=== PATIENT | male | born 1985 | race Caucasian/White ===

== ENCOUNTER 2022-03-13 16:30 | Inpatient (IN) | payer OTHER ==
[2022-03-13 18:55] VITALS: BMI 19.2
[2022-03-13] MEDS ORDERED: MELATONIN 5 MG TABLETS PO SCH (22:00)
[2022-03-13] MEDS ORDERED: ACETAMINOPHEN 325 MG TABLET (FP) PO PRN (22:06)
[2022-03-13] MEDS ORDERED: LOPERAMIDE HCL 2 MG CAPSULE PO PRN (22:06)
[2022-03-13] MEDS ORDERED: MAG HYDROX/AL HYDROX/SIMETH 30 ML UNIT-DOSE CUP PO PRN (22:06)
[2022-03-13] MEDS ORDERED: MAGNESIUM CITRATE 300 ML BOTTLE PO PRN (22:06)
[2022-03-13] MEDS ORDERED: guaiFENesin 200 MG/10 ML 10 ML UNIT-DOSE CUPS PO PRN (22:06)
[2022-03-13] MEDS ORDERED: MAGNESIUM HYDROX 2400MG/30ML ORAL SUSPENSION 30 ML CUP PO PRN (22:06)
[2022-03-13] MEDS ORDERED: NICOTINE POLACRILEX 2 MG GUM BC PRN (22:06)
[2022-03-13] MEDS ORDERED: P-EPHED 60MG/TRIPROLIDI 2.5MG TABLET PO PRN (22:06)
[2022-03-14] MEDS ORDERED: TUBERCULIN PPD 5 TU/0.1ML VIAL ID ONE (06:22)
[2022-03-14] MEDS: PRENATAL VITAMINS W/ FOLIC ACID TABLET (FP) PO SCH (09:30)
[2022-03-14] MEDS: NICOTINE 21 MG/24 HOURS TOPICAL PATCH TD SCH (09:30)
[2022-03-14 09:37] LABS: HEMATOCRIT 38.7 % (35.4-49); MCH 31.4 pg (25.7-33.7); MCHC 33.6 g/dl (32.0-35.9); MEAN CELL VOLUME 93.4 fl (80-96); MEAN PLT VOLUME 7.9 fl (7.5-11.1); PLATELET COUNT 273 10^3/uL (134-434); RBC 4.14 M/mm3 (4.00-5.60); RDW 14.4 % (11.9-15.9); WHITE BLOOD COUNT 7.9 K/mm3 (4.0-10.0)
[2022-03-14 10:02] LABS: ALBUMIN 3.8 g/dl (3.4-5.0); CALCIUM 8.8 mg/dL (8.5-10.1)
[2022-03-14 10:04] LABS: BLOOD UREA NITROGEN 17.4 mg/dL (7-18)
[2022-03-14 10:06] LABS: CREATININE 0.7 mg/dL (0.55-1.3)
[2022-03-14 10:07] LABS: BILIRUBIN,TOTAL 0.5 mg/dL (0.2-1); TOT PROT 7.4 g/dl (6.4-8.2)
[2022-03-14 10:41] LABS: SYPHILIS W/ RPR CONF NON-REACTIVE (NONREACTIVE)
[2022-03-14] MEDS: hydrOXYzine PAMOATE 25 MG CAPSULE (FP) PO PRN ×3 (13:15→22:18)
[2022-03-14] MEDS: THIAMINE HCL 100 MG TABLET (FP) PO SCH (21:03)
[2022-03-14] MEDS: SUVOREXANT 10 MG TABLET PO PRN (21:04)
[2022-03-15] MEDS: NICOTINE 21 MG/24 HOURS TOPICAL PATCH TD SCH (09:48)
[2022-03-15] MEDS: PRENATAL VITAMINS W/ FOLIC ACID TABLET (FP) PO SCH (09:48)
[2022-03-15] MEDS: hydrOXYzine PAMOATE 25 MG CAPSULE (FP) PO PRN ×2 (09:50→18:31)
[2022-03-15] MEDS: IBUPROFEN 400 MG TABLET (FP) PO PRN ×2 (09:50→18:31)
[2022-03-15 13:18] LABS: URINE APPEARANCE CLEAR; URINE BILIRUBIN NEGATIVE (NEGATIVE); URINE COLOR YELLOW; URINE GLUCOSE (UA) NEGATIVE (NEGATIVE); URINE KETONE NEGATIVE (NEGATIVE); URINE LEUK ESTERASE NEGATIVE (NEGATIVE); URINE NITRITE NEGATIVE (NEGATIVE); URINE PROTEIN NEGATIVE (NEGATIVE); URINE UROBILINOGEN 0.2 mg/dL (0.2-1.0)
[2022-03-15] MEDS: THIAMINE HCL 100 MG TABLET (FP) PO SCH (21:20)
[2022-03-15] MEDS: SUVOREXANT 10 MG TABLET PO PRN (21:21)
[2022-03-16] MEDS: PRENATAL VITAMINS W/ FOLIC ACID TABLET (FP) PO SCH (09:31)
[2022-03-16] MEDS: hydrOXYzine PAMOATE 25 MG CAPSULE (FP) PO PRN ×2 (09:31→14:38)
[2022-03-16] MEDS: NICOTINE 21 MG/24 HOURS TOPICAL PATCH TD SCH (09:32)
[2022-03-16] MEDS: METHOCARBAMOL 500 MG TABLET PO PRN (14:25)
[2022-03-16] MEDS: THIAMINE HCL 100 MG TABLET (FP) PO SCH (21:30)
[2022-03-16] MEDS: SUVOREXANT 10 MG TABLET PO PRN (21:31)
[2022-03-17] MEDS: NICOTINE 21 MG/24 HOURS TOPICAL PATCH TD SCH (10:07)
[2022-03-17] MEDS: PRENATAL VITAMINS W/ FOLIC ACID TABLET (FP) PO SCH (10:07)
[2022-03-17] MEDS: METHOCARBAMOL 500 MG TABLET PO PRN ×2 (10:07→18:06)
[2022-03-17] MEDS: hydrOXYzine PAMOATE 25 MG CAPSULE (FP) PO PRN (10:07)
[2022-03-17] MEDS ORDERED: NICOTINE 7 MG/24 HOURS TOPICAL PATCH TD PRN (14:33)
[2022-03-17] MEDS: LIDOCAINE 5% TOPICAL PATCH TP SCH (15:14)
[2022-03-17] MEDS: NICOTINE 10 MG CARTRIDGE (INHALER) IH PRN (15:16)
[2022-03-17] MEDS: THIAMINE HCL 100 MG TABLET (FP) PO SCH (21:21)
[2022-03-17] MEDS: LIDOCAINE PATCH REMOVAL MC SCH (21:22)
[2022-03-17] MEDS: SUVOREXANT 10 MG TABLET PO PRN (21:22)
[2022-03-18] MEDS: hydrOXYzine PAMOATE 25 MG CAPSULE (FP) PO PRN ×3 (06:17→21:07)
[2022-03-18] MEDS: METHOCARBAMOL 500 MG TABLET PO PRN (06:17)
[2022-03-18] MEDS: PRENATAL VITAMINS W/ FOLIC ACID TABLET (FP) PO SCH (09:51)
[2022-03-18] MEDS: LIDOCAINE 5% TOPICAL PATCH TP SCH (09:51)
[2022-03-18] MEDS ORDERED: ACETAMINOPHEN 325 MG TABLET (FP) PO PRN (10:06)
[2022-03-18] MEDS: BACLOFEN 10 MG TABLET (FP) PO SCH ×2 (14:04→21:06)
[2022-03-18] MEDS: THIAMINE HCL 100 MG TABLET (FP) PO SCH (21:06)
[2022-03-18] MEDS: LIDOCAINE PATCH REMOVAL MC SCH (21:07)
[2022-03-18] MEDS: SUVOREXANT 10 MG TABLET PO PRN (21:07)
[2022-03-19] MEDS: BACLOFEN 10 MG TABLET (FP) PO SCH ×3 (06:20→21:13)
[2022-03-19] MEDS: hydrOXYzine PAMOATE 25 MG CAPSULE (FP) PO PRN ×2 (06:20→14:03)
[2022-03-19] MEDS: LIDOCAINE 5% TOPICAL PATCH TP SCH (09:41)
[2022-03-19] MEDS: PRENATAL VITAMINS W/ FOLIC ACID TABLET (FP) PO SCH (09:42)
[2022-03-19] MEDS: NICOTINE 10 MG CARTRIDGE (INHALER) IH PRN ×3 (10:01→21:13)
[2022-03-19] MEDS: THIAMINE HCL 100 MG TABLET (FP) PO SCH (21:13)
[2022-03-19] MEDS: SUVOREXANT 10 MG TABLET PO PRN (21:13)
[2022-03-19] MEDS: LIDOCAINE PATCH REMOVAL MC SCH (21:18)
[2022-03-20] MEDS: hydrOXYzine PAMOATE 25 MG CAPSULE (FP) PO PRN ×3 (06:03→21:10)
[2022-03-20] MEDS: BACLOFEN 10 MG TABLET (FP) PO SCH (06:03)
[2022-03-20] MEDS: NICOTINE 10 MG CARTRIDGE (INHALER) IH PRN (09:55)
[2022-03-20] MEDS: PRENATAL VITAMINS W/ FOLIC ACID TABLET (FP) PO SCH (09:55)
[2022-03-20] MEDS: LIDOCAINE 5% TOPICAL PATCH TP SCH (09:55)
[2022-03-20] MEDS: METHOCARBAMOL 500 MG TABLET PO PRN ×2 (15:42→21:10)
[2022-03-20] MEDS: THIAMINE HCL 100 MG TABLET (FP) PO SCH (21:10)
[2022-03-20] MEDS: SUVOREXANT 10 MG TABLET PO PRN (21:10)
[2022-03-20] MEDS: LIDOCAINE PATCH REMOVAL MC SCH (22:34)
[2022-03-21] MEDS: NICOTINE 10 MG CARTRIDGE (INHALER) IH PRN ×2 (06:27→21:09)
[2022-03-21] MEDS: PRENATAL VITAMINS W/ FOLIC ACID TABLET (FP) PO SCH (09:36)
[2022-03-21] MEDS: LIDOCAINE 5% TOPICAL PATCH TP SCH (09:36)
[2022-03-21] MEDS: hydrOXYzine PAMOATE 25 MG CAPSULE (FP) PO PRN ×2 (09:37→21:08)
[2022-03-21] MEDS: METHOCARBAMOL 500 MG TABLET PO PRN ×2 (09:37→21:07)
[2022-03-21] MEDS: THIAMINE HCL 100 MG TABLET (FP) PO SCH (21:07)
[2022-03-21] MEDS: LIDOCAINE PATCH REMOVAL MC SCH (21:32)
[2022-03-21] MEDS ORDERED: SUVOREXANT 10 MG TABLET PO PRN (21:35)
[2022-03-22] MEDS: NICOTINE 10 MG CARTRIDGE (INHALER) IH PRN ×2 (10:20→15:28)
[2022-03-22] MEDS: PRENATAL VITAMINS W/ FOLIC ACID TABLET (FP) PO SCH (10:20)
[2022-03-22] MEDS: hydrOXYzine PAMOATE 25 MG CAPSULE (FP) PO PRN ×2 (10:20→15:28)
[2022-03-22] MEDS: METHOCARBAMOL 500 MG TABLET PO PRN (10:20)
[2022-03-22] MEDS: LIDOCAINE 5% TOPICAL PATCH TP SCH (10:21)
[2022-03-22] MEDS ORDERED: SUVOREXANT 10 MG TABLET PO PRN (22:00)
[2022-03-22] MEDS ORDERED: SUVOREXANT 10 MG TABLET PO ONE (22:38)
[2022-03-22] MEDS: THIAMINE HCL 100 MG TABLET (FP) PO SCH (22:45)
[2022-03-22] MEDS: SUVOREXANT 10 MG TABLET PO PRN (22:45)
[2022-03-22] MEDS: LIDOCAINE PATCH REMOVAL MC SCH (22:49)
[2022-03-23] MEDS: NICOTINE 10 MG CARTRIDGE (INHALER) IH PRN ×3 (06:20→21:18)
[2022-03-23] MEDS: hydrOXYzine PAMOATE 25 MG CAPSULE (FP) PO PRN ×4 (06:20→21:17)
[2022-03-23] MEDS: METHOCARBAMOL 500 MG TABLET PO PRN ×2 (06:20→21:17)
[2022-03-23] MEDS: PRENATAL VITAMINS W/ FOLIC ACID TABLET (FP) PO SCH (09:41)
[2022-03-23] MEDS: LIDOCAINE 5% TOPICAL PATCH TP SCH (09:42)
[2022-03-23] MEDS: IBUPROFEN 400 MG TABLET (FP) PO PRN (14:57)
[2022-03-23] MEDS: THIAMINE HCL 100 MG TABLET (FP) PO SCH (21:17)
[2022-03-23] MEDS: SUVOREXANT 10 MG TABLET PO PRN (21:17)
[2022-03-23] MEDS: LIDOCAINE PATCH REMOVAL MC SCH (21:29)
[2022-03-23] MEDS ORDERED: SUVOREXANT 10 MG TABLET PO PRN (22:00)
[2022-03-24] MEDS: hydrOXYzine PAMOATE 25 MG CAPSULE (FP) PO PRN ×3 (06:20→21:22)
[2022-03-24] MEDS: METHOCARBAMOL 500 MG TABLET PO PRN ×3 (06:20→21:22)
[2022-03-24] MEDS: NICOTINE 10 MG CARTRIDGE (INHALER) IH PRN ×3 (06:21→21:22)
[2022-03-24] MEDS: PRENATAL VITAMINS W/ FOLIC ACID TABLET (FP) PO SCH (10:07)
[2022-03-24] MEDS: LIDOCAINE 5% TOPICAL PATCH TP SCH (10:07)
[2022-03-24] MEDS: THIAMINE HCL 100 MG TABLET (FP) PO SCH (21:21)
[2022-03-24] MEDS: LIDOCAINE PATCH REMOVAL MC SCH (21:22)
[2022-03-24] MEDS ORDERED: SUVOREXANT 10 MG TABLET PO PRN (22:00)
[2022-03-25] MEDS: METHOCARBAMOL 500 MG TABLET PO PRN ×2 (06:23→14:18)
[2022-03-25] MEDS: hydrOXYzine PAMOATE 25 MG CAPSULE (FP) PO PRN ×2 (06:23→09:48)
[2022-03-25] MEDS: NICOTINE 10 MG CARTRIDGE (INHALER) IH PRN ×2 (06:24→14:18)
[2022-03-25] MEDS: LIDOCAINE 5% TOPICAL PATCH TP SCH (09:49)
[2022-03-25] MEDS: PRENATAL VITAMINS W/ FOLIC ACID TABLET (FP) PO SCH (09:49)
[2022-03-25] MEDS: hydrOXYzine PAMOATE 50 MG CAPSULE (FP) PO PRN ×2 (14:18→21:00)
[2022-03-25] MEDS: SUVOREXANT 15 MG TABLET PO PRN (21:01)
[2022-03-25] MEDS: IBUPROFEN 400 MG TABLET (FP) PO PRN (21:01)
[2022-03-25] MEDS: THIAMINE HCL 100 MG TABLET (FP) PO SCH (21:01)
[2022-03-25] MEDS: LIDOCAINE PATCH REMOVAL MC SCH (21:02)
[2022-03-25] MEDS ORDERED: SUVOREXANT 10 MG TABLET PO PRN (22:00)
[2022-03-26] MEDS: NICOTINE 10 MG CARTRIDGE (INHALER) IH PRN ×3 (06:35→21:18)
[2022-03-26] MEDS: hydrOXYzine PAMOATE 50 MG CAPSULE (FP) PO PRN ×2 (06:35→13:04)
[2022-03-26] MEDS: METHOCARBAMOL 500 MG TABLET PO PRN ×2 (06:35→13:04)
[2022-03-26] MEDS: PRENATAL VITAMINS W/ FOLIC ACID TABLET (FP) PO SCH (09:44)
[2022-03-26] MEDS: LIDOCAINE 5% TOPICAL PATCH TP SCH (09:45)
[2022-03-26] MEDS: LIDOCAINE PATCH REMOVAL MC SCH (21:16)
[2022-03-26] MEDS: THIAMINE HCL 100 MG TABLET (FP) PO SCH (21:16)
[2022-03-26] MEDS: SUVOREXANT 15 MG TABLET PO PRN (21:17)
[2022-03-26] MEDS: IBUPROFEN 400 MG TABLET (FP) PO PRN (21:18)
[2022-03-27] MEDS: hydrOXYzine PAMOATE 50 MG CAPSULE (FP) PO PRN ×3 (06:09→21:15)
[2022-03-27] MEDS: METHOCARBAMOL 500 MG TABLET PO PRN ×2 (06:09→19:14)
[2022-03-27] MEDS: NICOTINE 10 MG CARTRIDGE (INHALER) IH PRN ×3 (06:10→19:14)
[2022-03-27] MEDS: PRENATAL VITAMINS W/ FOLIC ACID TABLET (FP) PO SCH (09:51)
[2022-03-27] MEDS: IBUPROFEN 400 MG TABLET (FP) PO PRN (09:52)
[2022-03-27] MEDS: LIDOCAINE 5% TOPICAL PATCH TP SCH (12:26)
[2022-03-27] MEDS: busPIRone HCL 10 MG TABLET (FP) PO SCH ×2 (14:40→21:15)
[2022-03-27] MEDS: THIAMINE HCL 100 MG TABLET (FP) PO SCH (21:15)
[2022-03-27] MEDS: LIDOCAINE PATCH REMOVAL MC SCH (21:18)
[2022-03-27] MEDS: SUVOREXANT 15 MG TABLET PO PRN (21:18)
[2022-03-28] MEDS: hydrOXYzine PAMOATE 50 MG CAPSULE (FP) PO PRN ×2 (06:14→11:43)
[2022-03-28] MEDS: METHOCARBAMOL 500 MG TABLET PO PRN ×2 (06:14→21:05)
[2022-03-28] MEDS: busPIRone HCL 10 MG TABLET (FP) PO SCH ×3 (06:14→21:05)
[2022-03-28] MEDS: NICOTINE 10 MG CARTRIDGE (INHALER) IH PRN ×3 (06:15→21:06)
[2022-03-28] MEDS: PRENATAL VITAMINS W/ FOLIC ACID TABLET (FP) PO SCH (10:22)
[2022-03-28] MEDS: LIDOCAINE 5% TOPICAL PATCH TP SCH (10:23)
[2022-03-28] MEDS: SUVOREXANT 15 MG TABLET PO PRN (21:04)
[2022-03-28] MEDS: THIAMINE HCL 100 MG TABLET (FP) PO SCH (21:05)
[2022-03-28] MEDS: LIDOCAINE PATCH REMOVAL MC SCH (21:05)
[2022-03-29] MEDS: busPIRone HCL 10 MG TABLET (FP) PO SCH ×3 (06:03→21:07)
[2022-03-29] MEDS: hydrOXYzine PAMOATE 50 MG CAPSULE (FP) PO PRN ×3 (06:03→21:07)
[2022-03-29] MEDS: NICOTINE 10 MG CARTRIDGE (INHALER) IH PRN ×4 (06:04→19:12)
[2022-03-29] MEDS: PRENATAL VITAMINS W/ FOLIC ACID TABLET (FP) PO SCH (10:07)
[2022-03-29] MEDS: LIDOCAINE 5% TOPICAL PATCH TP SCH (10:07)
[2022-03-29] MEDS: METHOCARBAMOL 500 MG TABLET PO PRN (10:08)
[2022-03-29] MEDS: SUVOREXANT 15 MG TABLET PO PRN (21:07)
[2022-03-29] MEDS: THIAMINE HCL 100 MG TABLET (FP) PO SCH (21:07)
[2022-03-29] MEDS: LIDOCAINE PATCH REMOVAL MC SCH (21:08)
[2022-03-30] MEDS: hydrOXYzine PAMOATE 50 MG CAPSULE (FP) PO PRN ×2 (06:37→13:52)
[2022-03-30] MEDS: busPIRone HCL 10 MG TABLET (FP) PO SCH ×3 (06:37→21:02)
[2022-03-30] MEDS: NICOTINE 10 MG CARTRIDGE (INHALER) IH PRN ×4 (06:38→21:03)
[2022-03-30] MEDS: PRENATAL VITAMINS W/ FOLIC ACID TABLET (FP) PO SCH (09:48)
[2022-03-30] MEDS: METHOCARBAMOL 500 MG TABLET PO PRN (09:49)
[2022-03-30] MEDS: LIDOCAINE 5% TOPICAL PATCH TP SCH (10:42)
[2022-03-30] MEDS: THIAMINE HCL 100 MG TABLET (FP) PO SCH (21:02)
[2022-03-30] MEDS: SUVOREXANT 15 MG TABLET PO PRN (21:03)
[2022-03-30] MEDS: LIDOCAINE PATCH REMOVAL MC SCH (21:17)
[2022-03-31] MEDS: hydrOXYzine PAMOATE 50 MG CAPSULE (FP) PO PRN ×3 (06:48→21:06)
[2022-03-31] MEDS: busPIRone HCL 10 MG TABLET (FP) PO SCH ×3 (06:48→21:06)
[2022-03-31] MEDS: NICOTINE 10 MG CARTRIDGE (INHALER) IH PRN ×4 (06:50→21:06)
[2022-03-31] MEDS: METHOCARBAMOL 500 MG TABLET PO PRN ×2 (10:13→21:06)
[2022-03-31] MEDS: PRENATAL VITAMINS W/ FOLIC ACID TABLET (FP) PO SCH (10:13)
[2022-03-31] MEDS: LIDOCAINE 5% TOPICAL PATCH TP SCH (10:14)
[2022-03-31] MEDS: THIAMINE HCL 100 MG TABLET (FP) PO SCH (21:06)
[2022-03-31] MEDS: LIDOCAINE PATCH REMOVAL MC SCH (21:07)
[2022-04-01] MEDS: hydrOXYzine PAMOATE 50 MG CAPSULE (FP) PO PRN ×3 (06:23→21:06)
[2022-04-01] MEDS: busPIRone HCL 10 MG TABLET (FP) PO SCH ×3 (06:23→21:06)
[2022-04-01] MEDS: NICOTINE 10 MG CARTRIDGE (INHALER) IH PRN ×4 (06:24→21:07)
[2022-04-01] MEDS: PRENATAL VITAMINS W/ FOLIC ACID TABLET (FP) PO SCH (10:19)
[2022-04-01] MEDS: METHOCARBAMOL 500 MG TABLET PO PRN ×2 (10:19→21:06)
[2022-04-01] MEDS: LIDOCAINE 5% TOPICAL PATCH TP SCH (10:20)
[2022-04-01] MEDS: THIAMINE HCL 100 MG TABLET (FP) PO SCH (21:06)
[2022-04-01] MEDS: LIDOCAINE PATCH REMOVAL MC SCH (21:07)
[2022-04-01] MEDS ORDERED: SUVOREXANT 15 MG TABLET PO PRN (22:00)
[2022-04-02] MEDS: hydrOXYzine PAMOATE 50 MG CAPSULE (FP) PO PRN ×3 (06:07→21:13)
[2022-04-02] MEDS: NICOTINE 10 MG CARTRIDGE (INHALER) IH PRN ×4 (06:07→21:13)
[2022-04-02] MEDS: busPIRone HCL 10 MG TABLET (FP) PO SCH ×3 (06:08→21:13)
[2022-04-02] MEDS: LIDOCAINE 5% TOPICAL PATCH TP SCH (09:35)
[2022-04-02] MEDS: PRENATAL VITAMINS W/ FOLIC ACID TABLET (FP) PO SCH (09:35)
[2022-04-02] MEDS: THIAMINE HCL 100 MG TABLET (FP) PO SCH (21:13)
[2022-04-02] MEDS: METHOCARBAMOL 500 MG TABLET PO PRN (21:13)
[2022-04-02] MEDS: MIRTAZAPINE 15 MG TABLET (FP) PO SCH (21:13)
[2022-04-02] MEDS: LIDOCAINE PATCH REMOVAL MC SCH (21:14)
[2022-04-03] MEDS: NICOTINE 10 MG CARTRIDGE (INHALER) IH PRN ×4 (06:03→21:06)
[2022-04-03] MEDS: hydrOXYzine PAMOATE 50 MG CAPSULE (FP) PO PRN ×3 (06:03→21:05)
[2022-04-03] MEDS: busPIRone HCL 10 MG TABLET (FP) PO SCH ×3 (06:03→21:06)
[2022-04-03] MEDS: PRENATAL VITAMINS W/ FOLIC ACID TABLET (FP) PO SCH (09:57)
[2022-04-03] MEDS: LIDOCAINE 5% TOPICAL PATCH TP SCH (09:57)
[2022-04-03] MEDS: METHOCARBAMOL 500 MG TABLET PO PRN ×2 (09:58→21:05)
[2022-04-03] MEDS: MIRTAZAPINE 15 MG TABLET (FP) PO SCH (21:05)
[2022-04-03] MEDS: THIAMINE HCL 100 MG TABLET (FP) PO SCH (21:05)
[2022-04-03] MEDS: LIDOCAINE PATCH REMOVAL MC SCH (21:09)
[2022-04-04] MEDS: busPIRone HCL 10 MG TABLET (FP) PO SCH ×3 (06:06→21:12)
[2022-04-04] MEDS: hydrOXYzine PAMOATE 50 MG CAPSULE (FP) PO PRN ×2 (06:07→21:13)
[2022-04-04] MEDS: METHOCARBAMOL 500 MG TABLET PO PRN ×2 (06:07→21:12)
[2022-04-04] MEDS: NICOTINE 10 MG CARTRIDGE (INHALER) IH PRN ×3 (09:47→21:14)
[2022-04-04] MEDS: PRENATAL VITAMINS W/ FOLIC ACID TABLET (FP) PO SCH (09:47)
[2022-04-04] MEDS: LIDOCAINE 5% TOPICAL PATCH TP SCH (11:17)
[2022-04-04] MEDS: MIRTAZAPINE 15 MG TABLET (FP) PO SCH (21:12)
[2022-04-04] MEDS: THIAMINE HCL 100 MG TABLET (FP) PO SCH (21:12)
[2022-04-04] MEDS: LIDOCAINE PATCH REMOVAL MC SCH (22:34)
[2022-04-05] MEDS: NICOTINE 10 MG CARTRIDGE (INHALER) IH PRN ×4 (06:11→21:10)
[2022-04-05] MEDS: busPIRone HCL 10 MG TABLET (FP) PO SCH ×3 (06:11→21:09)
[2022-04-05] MEDS: hydrOXYzine PAMOATE 50 MG CAPSULE (FP) PO PRN ×2 (06:11→21:09)
[2022-04-05] MEDS: METHOCARBAMOL 500 MG TABLET PO PRN (10:29)
[2022-04-05] MEDS: PRENATAL VITAMINS W/ FOLIC ACID TABLET (FP) PO SCH (10:29)
[2022-04-05] MEDS: LIDOCAINE 5% TOPICAL PATCH TP SCH (10:30)
[2022-04-05] MEDS: LIDOCAINE PATCH REMOVAL MC SCH (21:09)
[2022-04-05] MEDS: MIRTAZAPINE 15 MG TABLET (FP) PO SCH (21:09)
[2022-04-05] MEDS: THIAMINE HCL 100 MG TABLET (FP) PO SCH (21:09)
[2022-04-06] MEDS: busPIRone HCL 10 MG TABLET (FP) PO SCH ×3 (05:55→21:07)
[2022-04-06] MEDS: hydrOXYzine PAMOATE 50 MG CAPSULE (FP) PO PRN ×3 (05:55→21:07)
[2022-04-06] MEDS: PRENATAL VITAMINS W/ FOLIC ACID TABLET (FP) PO SCH (09:43)
[2022-04-06] MEDS: LIDOCAINE 5% TOPICAL PATCH TP SCH (09:43)
[2022-04-06] MEDS: NICOTINE 10 MG CARTRIDGE (INHALER) IH PRN ×4 (09:44→21:07)
[2022-04-06] MEDS: METHOCARBAMOL 500 MG TABLET PO PRN ×2 (09:45→21:07)
[2022-04-06] MEDS: MIRTAZAPINE 15 MG TABLET (FP) PO SCH (21:07)
[2022-04-06] MEDS: THIAMINE HCL 100 MG TABLET (FP) PO SCH (21:07)
[2022-04-06] MEDS: LIDOCAINE PATCH REMOVAL MC SCH (21:08)
[2022-04-07] MEDS: NICOTINE 10 MG CARTRIDGE (INHALER) IH PRN ×4 (06:08→21:07)
[2022-04-07] MEDS: busPIRone HCL 10 MG TABLET (FP) PO SCH ×3 (06:09→21:06)
[2022-04-07] MEDS: hydrOXYzine PAMOATE 50 MG CAPSULE (FP) PO PRN ×2 (06:09→21:06)
[2022-04-07] MEDS: PRENATAL VITAMINS W/ FOLIC ACID TABLET (FP) PO SCH (10:11)
[2022-04-07] MEDS: METHOCARBAMOL 500 MG TABLET PO PRN ×2 (10:11→21:06)
[2022-04-07] MEDS: LIDOCAINE 5% TOPICAL PATCH TP SCH (11:04)
[2022-04-07] MEDS: MIRTAZAPINE 15 MG TABLET (FP) PO SCH (21:06)
[2022-04-07] MEDS: LIDOCAINE PATCH REMOVAL MC SCH (21:07)
[2022-04-07] MEDS: THIAMINE HCL 100 MG TABLET (FP) PO SCH (21:32)
[2022-04-08] MEDS: busPIRone HCL 10 MG TABLET (FP) PO SCH ×3 (06:44→21:06)
[2022-04-08] MEDS: PRENATAL VITAMINS W/ FOLIC ACID TABLET (FP) PO SCH (09:41)
[2022-04-08] MEDS: LIDOCAINE 5% TOPICAL PATCH TP SCH (09:41)
[2022-04-08] MEDS: hydrOXYzine PAMOATE 50 MG CAPSULE (FP) PO PRN ×3 (09:41→21:06)
[2022-04-08] MEDS: METHOCARBAMOL 500 MG TABLET PO PRN ×2 (09:41→21:06)
[2022-04-08] MEDS: NICOTINE 10 MG CARTRIDGE (INHALER) IH PRN ×2 (09:42→21:06)
[2022-04-08] MEDS: THIAMINE HCL 100 MG TABLET (FP) PO SCH (21:06)
[2022-04-08] MEDS: MIRTAZAPINE 15 MG TABLET (FP) PO SCH (21:06)
[2022-04-08] MEDS: LIDOCAINE PATCH REMOVAL MC SCH (23:00)
[2022-04-09] MEDS: NICOTINE 10 MG CARTRIDGE (INHALER) IH PRN (06:03)
[2022-04-09] MEDS: busPIRone HCL 10 MG TABLET (FP) PO SCH (06:03)
[2022-04-09] MEDS: hydrOXYzine PAMOATE 50 MG CAPSULE (FP) PO PRN (06:03)
[2022-04-09 06:21] VITALS: BP 114/74; PULSE 76; RESP 18; TEMP 97.7
== END 2022-04-09 06:30 | disposition home or self-care (01) | DRG 775 ==
LOC: YASAS 16:30 → Y3W 03-14 00:33
PROVIDERS: ADMIT Allergy & Immunology; ATTEND Psychiatry & Neurology Pain Medicine
PROC: HZ2ZZZZ Detoxification Services for Substance Abuse Treatment (ICD-10-PCS; principal; 2022-03-14)
DX: F10.20 Alcohol dependence, uncomplicated (principal); F12.20 Cannabis dependence, uncomplicated; F17.210 Nicotine dependence, cigarettes, uncomplicated; F19.280 Other psychoactive substance dependence with psychoactive substance-induced anxiety disorder; F19.282 Other psychoactive substance dependence with psychoactive substance-induced sleep disorder; R26.89 Other abnormalities of gait and mobility; M54.50 Low back pain, unspecified; G89.29 Other chronic pain
CPT/HCPCS: 36415; 80053; 81003; 85027; 86780; 86803; 93005; 93010; C9803-CS; J0475; U0003; U0005